=== PATIENT | female | born 1960 | race Caucasian/White ===

== ENCOUNTER → 2022-10-11 15:51 | Outpatient (CLI) | payer OTHER, SELFPAY ==
--- NOTE | ~2022-10-11 | MR_ITS ---
EXAMINATION: MR shoulder RT wo con DATE: 10/11/2022 16:40 INDICATION: Rotator cuff tear presenting with right shoulder pain and weakness TECHNIQUE: Magnetic resonance imaging (MRI) of the right shoulder was performed without intravenous c ontrast. Sequences included axial PD-weighted FS FSE, coronal oblique PD-weighted FS FSE, coronal obl ique T2-weighted FS FSE, sagittal PD-weighted FS FSE, and sagittal T1-weighted SE. COMPARISON: None. FINDINGS: Coracoacromial arch: The acromion undersurface is curved in morphology (type II). There is mild thickening of the medial s luz [place] of the coracoacromial ligament. Mild acromioclavicular osteoarthritis. Rotator cuff: Mild supraspinatus and infraspinatus tendinopathy. Full-thickness tear of the supraspinatus tendon an d anterior portion of the conjoined portion of the supraspinatus and infraspinatus tendons 1.8 cm AP along the superior facet and anterior most portion of the middle facet footplate. There is a minimal amount of residual tendon attached along the footplate. There is up to 3 cm medial retraction of the tear with the tear margin positioned midway between the level of the apex of the humeral head and the acromioclavicular joint line. The subscapularis and teres minor tendons are normal. Mild decreased c ross-sectional area of the supraspinatus muscle belly at the level of the supraspinatus fossa with co ncave cephalad margin along the posterior half of the muscle belly but without significant fatty repl acement most likely related to some retraction of the muscle belly resulting from the more distal ten don tear. Biceps tendon, glenoid labrum and glenohumeral cartilage: Long head of the biceps tendon is avulsed from superior glenoid anchor and retracted below the level of the intertubercular groove. Glenoid labrum remains normal with normal anterosuperior sublabral for amen. Mild partial-thickness cartilage loss with smooth chondral surface along the inferomedial aspec t of the humeral head. Remaining glenohumeral cartilage is normal. Fluid: Physiologic amount of fluid in the glenohumeral joint and biceps tendon sheath. No loose osteochondr al bodies. Small effusion at the acromioclavicular joint likely representing fluid extending from the glenohumeral joint via the full-thickness rotator cuff tear in the subacromial/subdeltoid bursa. Bones: Normal marrow signal with no edema, fracture or pathologic marrow replacing process. IMPRESSION: 1. Full-thickness tear involving the supraspinatus tendon and anterior portion of the combined supras pinatus and infraspinatus tendon. 2. Full-thickness tear and distal retraction of the long head biceps tendon. 3. Mild glenohumeral and acromioclavicular osteoarthritis. Reviewed, dictated and finalized at location L. IMPRESSION: 1. Full-thickness tear involving the supraspinatus tendon and anterior portion of the combined supraspinatus and infraspinatus tendon. 2. Full-thickness tear and distal retraction of the long head biceps tendon. 3. Mild glenohumeral and acromioclavicular osteoarthritis.
== END ==
DX: M19.011 Primary osteoarthritis, right shoulder (principal); S46.111A Strain of muscle, fascia and tendon of long head of biceps, right arm, initial encounter; S43.491A Other sprain of right shoulder joint, initial encounter; X58.XXXA Exposure to other specified factors, initial encounter
CPT/HCPCS: 73221